=== PATIENT | female | born 1950 | race Caucasian/White ===

== ENCOUNTER → 2016-07-06 | Outpatient (CLI) | payer MEDICARE ==
[~2016-07-06] MED LIST: AUBAGIO14 MG PO; BACLOFEN 10MG T10 MG PO; BACTRIM DS 8001 TAB PO; CLARITIN 10MG T10 MG PO; DITROPAN 5MG TAB5 MG; FOSAMAX70 MG PO; HIPREX1 GM PO; LEVAQUIN500 MG PO; MYRBETRIQ50 MG PO; VITAMIN D1000 IU PO
--- NOTE | 2016-07-09 10:19 | RADIOLOGY REPORT PS360 ---
PROCEDURE: 2-D M-mode and color Doppler study INDICATIONS FOR THE TEST: Chest pain COPD Heart Murmur+ Tobacco Smoking Palpitations Fatigue Syncope Edema+ Hypertension+Diabetes Mellitus Rheumatic Fever SOB CAREY Obesity Hyperlipidemia Family History HD Additional History MS PATIENT INFORMATION HEIGHT: 69 WEIGHT:110 GENDER: Female B/P:115/70 2-D/M-MODE INTERPRETATION: 2-D MEASUREMENTS OBSERVED VALUES IN CMS Right Ventricular Dimension (RVDd) 1.7 Interventricular Septum (Thickness)(IVsd) 1.1 Left Ventricular Internal Dimensions(LVIDd) 3.4 Left Ventricular Posterior Wall (Thickness)(LVPWd) 0.9 Aortic Root 3.3 Aortic Cusp Separation 2.1 Left Atrial Dimensions (LAD) 2.2 2D 1. Left atrium is normal size, left ventricle is normal size, there is no concentric left ventricular hypertrophy, there is borderline left ventricular systolic function, visually estimated ejection fraction 45-50% with no obvious regional wall motion abnormality. 2. The right atrium and right ventricle are normal size and contractility. 3. The aortic valve is minimally thickened and calcified, there is no aortic stenosis. 4. The mitral valve leaflets are minimally thickened, there is no mitral stenosis. 5. The tricuspid valve is structurally normal. 6. The pulmonic valve is not well visualized. 7. No significant pericardial effusion noted. DOPPLER INTERROGATION: Doppler interrogation of the aortic mitral and tricuspid valvular presence of mild aortic, mild mitral and tricuspid regurgitation, tricuspid regurgitant jet velocity insufficient for calculation of the right ventricular systolic pressure, Doppler evidence of impaired LV relaxation seen, tissue Doppler is inconclusive. CONCLUSION: 1. Normal left ventricular size, borderline left ventricular systolic function, visually estimated ejection fraction 45-50% with no obvious regional wall motion abnormality, Doppler evidence of impaired LV relaxation. 2. Mild aortic, mild mitral and tricuspid regurgitation. 3. No significant pericardial effusion noted.
== END ==
LOC: RT 12:47
DX: R01.1 Cardiac murmur, unspecified (principal)

== ENCOUNTER → 2016-09-19 | Outpatient (CLI) | payer MEDICARE ==
[2016-09-19 18:36] LABS: HEMOGLOBIN 10.3 g/dL (12.2-16.2); LYMPH # 0.8 K/mm3 (0.7-4.5); LYMPH % 13.5 % (10-50.0)
[2016-09-19 20:42] LABS: BUN 27 mg/dL (7-18)
[2016-09-19 20:59] LABS: GFR (ESTIMATED) 49 ML/MIN (59-)
== END ==
LOC: LAB 18:02
PROVIDERS: Emergency Medicine
DX: R53.1 Weakness (principal)